=== PATIENT | female | born 1985 | race Caucasian/White ===

== ENCOUNTER 2016-08-01 12:47 | Emergency (ER) | payer OTHER ==
[~2016-08-01] VITALS: Ht 172.7 cm; Wt 61.4 kg
[~2016-08-01 12:47] MED LIST: DOCU-41 PO; FERR-83 PO; IBUP-1827 PO; OXYC-474 PO
[2016-08-01 12:52] VITALS: BP 125/82; PULSE 74; RESP 16; O2SAT 100
--- NOTE | 2016-08-01 13:09 | ED.REPORT ---
HPI-Back Pain Under 40 Date of Service Aug 01, 2016 ED Provider: Dr. Alejandro Coronel MD A 30 year old female with a history of chronic back pain (possible Marfan's syndrome) presents to the ED complaining of mid-thoracic back pain that began at 1100 this morning. Patient reports that this is similar to her chronic but pain but this episode is much worse. Her pain is exacerbated by deep breath and arm movement. Associated symptoms include "popping" in the back, SOB, numbness and weakness in the left hand. Patient currently visits a PT every week. She reports several episodes of diarrhea for the past few days that she believes may have been food poisoning. Patient denies any previous back injuries. She denies any weakness, numbness/tingling in the lower extremities, fever or chills. Patient took 2 Pamprin this morning to relieve menstrual cramps. She denies any chance of . Nursing Notes Stated Complaint: BACK PAIN Chief Complaint: Back Pain or Injury Nursing Notes Reviewed: Yes Allergies: Coded Allergies: No Known Allergies (Unverified , 08/01/16) No Active Prescriptions or Reported Meds General Time Seen by MD: 13:08 Chief Complaint Back pain Hx Obtained From: Patient Arrived By: Walk-in Sudden in Onset?: No Symptom Duration: Since onset Location: : Generalized Quality: Painful Radiation: : Does not radiate Severity: Current: Mild Severity: Maximum: Moderate Associated with: Denies: Fever, Numbness both low ext, Weakness both lower ext Pertinent Negative: Pt denies other symptoms Exacerbated by: Movement (Arm movement), Breathing Recent Healthcare: No recent doctor visit, No recent hospitalization Past Medical History Past Medical History Marfan's syndrome - undiagnosed (PT suspects) Chronic back pain Past Surgical History Smoking History Unknown if Ever Smoker Social History [place] Other Social History: Good social support, Local resident Ambulatory Status Independent Review of Systems Constitutional: Denies: Chills, Fever Respiratory: Reports: Shortness of breath GI: Reports: Diarrhea, Denies: Nausea, Vomiting Musculoskeletal: Reports: Back pain Neurologic: Reports: Numbness (in the left hand; denies in the LE), Weakness ( in the left hand; denies in the LE) Complete sys rev & neg: except as marked. Physical Exam Initial Vital Signs Vital Signs (First) Date Time Temp Pulse Resp B/P Pulse Ox O2 Delivery O2 Flow Rate FiO2 08/01/16 12:52 36.8 74 16 125/82 100 Room Air Initial VS: Reviewed Head / Eyes: Atraumatic, Normocephalic, PERRL Neck: Supple, Non-tender, Full range of motion Extremities: Vascular intact, Neuro intact, No swelling, No tenderness Skin: Warm, Dry, No cyanosis Psychiatric: Mood/affect normal, Behavior normal, Normal thought content General/Constitutional: Awake, Alert Back: Atraumatic Flank / Spine / Paraspinal: Positive: Thorac paraspinal tend... (C4 C5 C6) Neurologic: Oriented X3, Speech NL, No motor deficits, No sensory deficits, CN II - XII intact Respiratory / Chest: Atraumatic, Breath sounds NL, Breath sounds = bilat, No respiratory distress Cardiovascular: Heart rate NL, Regular rhythm, Heart sounds NL Re-Eval/Medical Decision Re-Evaluation/Progress : Time of Eval: 14:22 Patient Status: Condition improved Re-Evaluation/Progress Note: Patient reports that the pain medication helped improve her symptoms have improved. All questions about treatment plan are addressed. Counseled Regarding: Diagnosis, Need for follow-up, When/why to return to ED Discharge & Departure Impression: Primary Impression: Thoracic back sprain Encounter type: initial encounter Qualified Code: S23.9XXA - Sprain of unspecified parts of thorax, initial encounter Disposition: Home All VS Reviewed: Yes Condition: Improved Additional Instructions: Thank you for trusting us with your care this morning. Your emergency department evaluation is reassuring that there is no dangerous cause for concern at this time. Please take 600mg of ibuprofen every 8 hours to help relieve your pain. Take hydrocodone/APAP as directed. Schedule a follow up appointment with your primary care physician or your physical therapist in the next 2-3 days for a recheck. Please return to the ED immediately if you begin to experience any new or worsening conditions including any weakness, numbness/tingling in the pelvis or lower extremities, bowel/bladder incontinence or difficulty breathing. *One of the medications that you were prescribed is a narcotic and may cause drowsiness. Please do not drink, drive or use acetaminophen while on this medication. Referrals: Chelsey Novoa (PCP) Scribe Attestation Portions of this note were transcribed by Charlie Duvall. I, Dr. Coronel personally performed the history, physical exam and medical decision-making; I reviewed and confirmed the accuracy of the information in the transcribed note. Signed by: Aria Elizabeth, 08/01/16 1430. copies to: Chelsey Novoa Kirk H MD Aug 01, 2016 13:09 CHARLIE DUVALL Aug 01, 2016 13:09 CHARLIE DUVALL Aug 01, 2016 13:09
[2016-08-01] MEDS ORDERED: HYDROcodone-APAP 5-325 mg Tablet PO ONE (13:35)
[2016-08-01] MEDS ORDERED: HYDR-4003 PO (14:37)
--- NOTE | 2016-08-01 14:52 | DRSVH ---
PROCEDURE: X-RAY CHEST, TWO VIEWS ([id number]) INDICATIONS: chest pain TECHNIQUE: 2 views of the chest were acquired. COMPARISON: None. FINDINGS: Surgical changes and devices: None. Lungs and pleura: No pleural effusions or pneumothorax. Lungs are clear. Mediastinum: Mediastinal contours are normal. Heart size is normal. Bones and chest wall: No suspicious bony abnormalities. Soft tissues appear unremarkable. IMPRESSION: No acute cardiopulmonary findings. Dictated by: Perri Hwang M.D. on 08/01/2016 at 14:49 Approved by: Perri Hwang M.D. on 08/01/2016 at 14:50
== END 2016-08-01 14:55 | disposition home or self-care (01) ==
LOC: SED 12:47
DX: S23.9XXA Sprain of unspecified parts of thorax, initial encounter (principal); X50.0XXA Overexertion from strenuous movement or load, initial encounter; Y93.89 Activity, other specified; Y92.9 Unspecified place or not applicable; Y99.9 Unspecified external cause status
CPT/HCPCS: 71020; 96372; 99284; J1885